=== PATIENT | male | born 1970 | race Caucasian/White ===

== ENCOUNTER 2016-12-02 18:21 | Emergency (ER) | payer OTHER ==
[2016-12-02] MEDS ORDERED: ACETAMINOPHEN 325 MG TABLET ONE (20:27)
[2016-12-02] MEDS ORDERED: IBUPROFEN 600 MG TABLET ONE ×2 (20:27→20:32)
[2016-12-02] MEDS ORDERED: DEXAMETHASONE 4 MG TABLET ONE (20:29)
[2016-12-02] MEDS ORDERED: PENICILLIN G BENZATHINE 1.2 MMU/2 ML SYRINGE IM ONE (20:29)
== END 2016-12-02 21:08 | disposition home or self-care (01) ==
LOC: ED 18:21
DX: J02.0 Streptococcal pharyngitis (principal); I10 Essential (primary) hypertension; F17.210 Nicotine dependence, cigarettes, uncomplicated
CPT/HCPCS: 87880; 99283 ×2; 96372; A9270 ×4; J0561